=== PATIENT | male | born 1985 | race Two or more races ===

== ENCOUNTER 2023-01-30 17:27 | Emergency (ER) | payer BC ==
[~2023-01-30] VITALS: Ht 177.8 cm; Wt 88.5 kg
[2023-01-30] MEDS ORDERED: ZOVIRAX200 MG PO (17:34)
== END 2023-01-30 20:30 | disposition home or self-care (01) ==
LOC: ER 17:27
DX: S01.82XA Laceration with foreign body of other part of head, initial encounter (principal); W45.8XXA Other foreign body or object entering through skin, initial encounter; Y93.89 Activity, other specified; Y92.828 Other wilderness area as the place of occurrence of the external cause; S49.82XA Other specified injuries of left shoulder and upper arm, initial encounter